=== PATIENT | male | born 1945 | race Caucasian/White ===

== ENCOUNTER 2018-09-22 09:28 | Emergency (ER) | payer MEDICARE, OTHER, SELFPAY ==
[2018-09-22 09:29] VITALS: BP 161/90; PULSE 93; RESP 18; TEMP 36.4; BMI 36.9
--- NOTE | 2018-09-22 09:45 | EKG12_ITS ---
Test Reason : CP Blood Pressure : / mmHG Vent. Rate : 090 BPM Atrial Rate : 090 BPM P-R Int : 152 ms QRS Dur : 084 ms QT Int : 360 ms P-R-T Axes : 051 030 036 degrees QTc Int : 440 ms Normal sinus rhythm with sinus arrhythmia Normal ECG Confirmed by GARY IVERSON, GINA ([id number]), market editor ALEXANDER GOMEZ ([id number]) on 09/24/2018 1:55:23 PM Referred By: SCOTT Confirmed By:CELINE VEGA MD
--- NOTE | 2018-09-22 09:55 | ED.DCSUM_ITS ---
History of Present Illness <JohnLopez - Last Filed: 09/22/18 09:55> Informant: Patient, Significant Other Onset: Today Context: Sudden Onset Timing: Continuous Quality: lightheaded Location: head Current Severity: Mild Maximum Severity: Severe Worsened by: Nothing Relieved by: Rest Associated Symptoms: Denies Narrative: 73-year-old male history of coronary artery disease presents to the emergency department with near syncope. Patient was driving his car with his and he had been driving for approximately 1 hour when he felt lightheaded like he is going to pass out had to pull the car over to the side of the road and switch driving with his . He did not have any shortness of breath chest pain diaphoresis nausea vomiting dizziness or palpitations. No recent illness. Had carpal tunnel surgery a few weeks ago and ended up being diagnosed with thrombophlebitis right leg by ultrasound. Prior similar symptoms: No Recent Illness/Hospitalization: No <Willem Yao - Last Filed: 09/22/18 10:40> Chief Complaint: Dizziness Past Medical History <Lopez Lopez Miranda Last Filed: 09/22/18 09:55> Prior records reviewed: Yes Past Medical History: - - Coronary artery disease Surgical History: - - Cardiac catheterization with 2 stents Lives: With Family Smoking Status: Never smoker Alcohol: None Drugs: None <Willem Yao Miranda Last Filed: 09/22/18 10:40> - Allergies and Home Meds Allergies/Adverse Reactions: Allergies Sulfa (Sulfonamide Antibiotics) Allergy (Verified 09/22/18 09:45) Anaphylaxis Primary Care Physician: Care Physician,No Primary [Primary Care Provider] - Review of Systems All systems negative except as indicated General: Denies: Chills, Fever Neurological: Reports: - - Lightheadedness <Willem Yao Last Filed: 09/22/18 10:40> Physical Exam Vital Signs/Narrative: Vital Signs Temp Pulse Resp BP 09/22/18 09:29 97.6 F L 93 18 161/90 H <Lopez Lopez - Last Filed: 09/22/18 09:55> Vital Signs/Narrative: Vital Signs Temp Pulse Resp BP 09/22/18 09:29 97.6 F L 93 18 161/90 H Inital Vital Signs reviewed: Yes General: Well nourished, Well developed Head: Normocephalic, Atraumatic Eyes: Perrl, EOMI ENT: Moist mucous membranes Neck: Supple, Nontender Cardiovascular: Regular rate, Regular rhythm Respiratory: No distress, CTA bilaterally, Chest nontender Abdomen: Soft, Nontender, Nondistended, Normal bowel sounds, No masses Back: Nontender Extremities: Nontender, No edema, - - 2+ DP pulses and PT pulses bilaterally.. Negative for: Calf Tenderness Skin: Normal color, No rash Neurological: Alert, Oriented x3, Cranial nerves II-XII grossly intact, Normal Strength, Normal Sensation, Normal Gait <Willem Yao - Last Filed: 09/22/18 10:40> Diagnostic/Tx/Re-eval - Medical Decision Making I evaluated this patient with our physician sugar laboratory assistant EP. Patient is complaining of near syncope. [place] like he may pass out. Denies any headache, chest pain, shortness of breath or abdominal pain. Denies any nausea, vomiting or diarrhea. No melena. Recently had carpal tunnel surgery done on his left wrist. He had compression devices on his right calf which caused bruising. He since had a noninvasive study which showed no DVT. Well-appearing older male. Vital signs are stable afebrile. HEENT exam normal. Neck nontender no lymphadenopathy. Lungs clear to auscultation bilaterally. Heart regular rhythm no murmur. Abdomen soft nontender. Normal bowel sounds no peritoneal signs. Extremities moves all 4. Neurovascular intact. He has a bandage on his left palm and wrist due to recent carpal tunnel surgery. It is healing nicely. No signs of infection. Left hand is neurovascular intact. His right calf area has some bruising from the compression devices. However there is no edema. Right foot neurovascular intact. Neurologically he is awake and alert with no focal motor deficits. NIH is 0. Patient with subjective symptoms of near syncope. He did not pass out. His EKG is a sinus rhythm and is otherwise unremarkable. Screening labs will be obtained. Impression: 1. Acute near syncope <JohnLopez - Last Filed: 09/22/18 09:55> - Rhythm Strip Rhythm Strip: Sinus Rhythm Rate: 90 Ectopy: None - EKG Initial EKG Interpretation: Sinus Rhythm, No Acute Injury Pattern Prior: No Prior - Medical Decision Making Orthostatic vital signs are negative. Patient's work-up is unremarkable. I reviewed his records in [facility] emergency department. Patient has had history of near syncope with negative work-up in the past since 2016. At this time we will discharge the patient home. He will continue hydration supportive care and follow-up closely with his primary care physician or return to the emergency department for worsening symptoms which were discussed. <Willem Yao - Last Filed: 09/22/18 10:40> ED Disposition <Lopez Lopez - Last Filed: 09/22/18 09:55> <Willem Yao - Last Filed: 09/22/18 10:40> - Plan for ED Patient: Disposition: Home or Assisted Living Diagnosis: Near syncope Instructions: NEAR SYNCOPE, Unknown Referrals: Care Physician,No Primary [Primary Care Provider] -
[2018-09-22 09:56] LABS: Absolute Lymphocyte Count 2.18 X10^3/uL (0.83-4.51); Absolute Neutrophil Count 4.7 X10^3/uL (2.0-7.7); Basophil# 0.03 X10^3/uL; Basophil% 0.4 % (0-1); Eosinophil# 0.07 X10^3/uL; Eosinophils% 0.9 % (0-5); Hematocrit 44.4 % (40-54); Hemoglobin 15.8 g/dL (13.0-16.5); Lymphocyte # 2.18 X10^3/ul (4.0); Lymphocyte % 28.3 % (19-41); Mean Corp Hgb Conc 35.6 g/dL (32-36); Mean Corpuscular Hgb 32.5 pg (27.0-32.0); Mean Corpuscular Volume 91.4 fL (80-94); Mean Platelet Vol. 9.4 fl (6.2-12.0); Monocyte# 0.66 X10^3/uL; Monocyte% 8.6 % (0-10); NRBC Flagged by Analyzer 0 % (0-5); Neutrophil # 4.71 X10^3/uL (2.7-7.7); Platelet Count 129 K/mm3 (150-450); RBC Distribution Width CV 14.1 % (11.6-14.6); RBC Distribution Width SD 46.8 fl (35.1-43.9); Red Blood Count 4.86 M/mm3 (4.6-6.2); White Blood Count 7.7 K/mm3 (4.4-11.0)
[2018-09-22 10:15] LABS: Anion Gap 10 (5-15); BUN 17 mg/dL (7-18); BUN/Creat Ratio 15.7 RATIO (10-20); Calcium,Total 8.7 mg/dL (8.5-10.1); Chloride 107 mmol/L (98-107); Creatinine, Serum 1.08 mg/dL (0.70-1.30); EST Glomerular Filtration Rate 72 mL/min (>60); Est Glom Filt Rate - Afr Amer 87 mL/min (>60); Estimated Creatinine Clearance 58.65 ml/min; Glucose 95 mg/dL (74-106); Sodium Level 143 mmol/L (136-145)
[2018-09-22 10:24] VITALS: BP 141/101; BP 151/88; BP 160/97; PULSE 81; PULSE 82; PULSE 87
[2018-09-22 11:14] VITALS: BP 148/94; PULSE 77; RESP 18
== END 2018-09-22 11:15 | disposition home or self-care (01) ==
PROVIDERS: Emergency Provider Physician Assistant Medical
DX: R55 Syncope and collapse (principal); Z98.890 Other specified postprocedural states; I25.10 Atherosclerotic heart disease of native coronary artery without angina pectoris; I25.2 Old myocardial infarction; I10 Essential (primary) hypertension; Z72.0 Tobacco use
CPT/HCPCS: 80048; 84484; 85025; 93005; 99285; A4216